=== PATIENT | male | born 1955 | race Caucasian/White ===

== ENCOUNTER → 2020-11-30 | Outpatient (CLI) | payer MEDICARE, OTHER ==
--- NOTE | 2020-11-30 14:48 | REPPI ---
INDICATION: ELEVATED PSA. COMPARISON: None. TECHNIQUE: Transrectal ultrasound of the prostate is performed. FINDINGS: Prostate measures 4.4 x 3.5 x 4.5 cm for total volume of 35.1 mL. Echotexture is heterogeneous with scattered cysts and calcifications. No focal mass is seen. Seminal vesicles are symmetrical. IMPRESSION: Ultrasound guidance was provided for Dr. Rose who performed ultrasound-guided biopsy of the prostate. <Electronically signed by Zachary Padron > 11/30/20 0671
== END ==
LOC: M SMT PRO 09:07
PROVIDERS: ATTEND Urology
DX: N42.89 Other specified disorders of prostate (principal)
CPT/HCPCS: 55700; 76872; 76942; G0416

== ENCOUNTER 2022-04-28 07:09 | Day surgery (SDC) | payer MEDICARE ==
[~2022-04-28] VITALS: Ht 172.7 cm; Wt 92.4 kg
[~2022-04-28 07:09] MED LIST: AMLO1TAB25 PO; ATOR1TAB21 PO; CHLO125TA PO; FLOM0.4C39 PO; LEXA1TAB PO; LevoFLOXacin IV 500 MG in IV 1 EA IV ONE; PROS5TAB PO
[2022-04-28] MEDS ORDERED: LR 1,000 ML IV SCH ×2 (07:25→12:20)
[2022-04-28] MEDS ORDERED: POTA1TAB14 PO (07:45)
[2022-04-28] MEDS ORDERED: LIDOCAINE 1% SDV 30ML VIAL As Ordered ONE (10:38)
[2022-04-28] MEDS ORDERED: BUPIVACAINE HCL 0.25% 30ML VIAL As Ordered ONE (10:38)
[2022-04-28] MEDS ORDERED: MUPIROCIN 2% OINT 22 GM TUBE As Ordered ONE (10:39)
[2022-04-28] MEDS ORDERED: OXYC1TAB23 PO (10:40)
[2022-04-28] MEDS ORDERED: propofoL 200 MG/20 ML VIAL As Ordered ONE (10:51)
[2022-04-28] MEDS ORDERED: fentaNYL 250 MCG/5 ML INJECTION As Ordered ONE (10:51)
[2022-04-28] MEDS ORDERED: LIDOCAINE 2% 100MG/5ML SDV (FOR ANES.) As Ordered ONE (10:51)
[2022-04-28] MEDS ORDERED: MIDAZOLAM INJ 2MG/2ML VIAL (J2250 PER 1MG) As Ordered ONE (10:52)
[2022-04-28] MEDS ORDERED: BACITRACIN OINTMENT 30GM TUBE As Ordered ONE (10:53)
[2022-04-28] MEDS ORDERED: ePHEDrine SULFATE 25 MG/5 ML(5MG/ML) SYRINGE As Ordered ONE (11:30)
[2022-04-28] MEDS ORDERED: ACETAMINOPHEN 1000MG 100ML IV BTL (OFIRMEV) (J0131 PER 10MG) As Ordered ONE (11:37)
[2022-04-28] MEDS ORDERED: ONDANSETRON 4MG/2ML VIAL As Ordered ONE (11:37)
[2022-04-28] MEDS ORDERED: dexameTHASONE 4 MG/ML 1ML VIAL (J1100 PER 1MG) As Ordered ONE (11:37)
[2022-04-28] MEDS ORDERED: ONDANSETRON 4MG/2ML VIAL IV PRN (12:20)
[2022-04-28] MEDS ORDERED: fentaNYL 100 MCG/2 ML INJECTION IV PRN (12:20)
[2022-04-28] MEDS ORDERED: oxyCODONE 5MG TAB PO PRN (12:20)
[2022-04-28] MEDS ORDERED: MORPHINE 2 MG/ML 1ML VIAL IV PRN (12:20)
[2022-04-28] MEDS ORDERED: PERCOCET 5MG/325MG TAB PO PRN (13:50)
[2022-04-28 14:20] VITALS: BP 154/84
== END 2022-04-28 14:25 | disposition home or self-care (01) ==
LOC: M SDC 07:09
PROVIDERS: ATTEND Urology
DX: N43.3 Hydrocele, unspecified (principal); I10 Essential (primary) hypertension; E78.5 Hyperlipidemia, unspecified; J44.9 Chronic obstructive pulmonary disease, unspecified; Z87.891 Personal history of nicotine dependence; Z79.899 Other long term (current) drug therapy; Z88.0 Allergy status to penicillin
CPT/HCPCS: 55040; 88302; J0131; J1100; J1956; J2250; J2405; J3010

== ENCOUNTER 2022-08-14 08:40 | Day surgery (SDC) | payer MEDICARE ==
[~2022-08-14] VITALS: Ht 172.7 cm; Wt 93.9 kg
[~2022-08-14 08:40] MED LIST changes: -LevoFLOXacin IV 500 MG in IV 1 EA IV ONE; +OXYC1TAB23 PO; +POTA1TAB14 PO
[2022-08-14] MEDS ORDERED: LIDOCAINE 2% 100MG/5ML SDV (FOR ANES.) As Ordered ONE (09:28)
[2022-08-14] MEDS ORDERED: MIDAZOLAM INJ 2MG/2ML VIAL (J2250 PER 1MG) As Ordered ONE (09:28)
[2022-08-14] MEDS ORDERED: ONDANSETRON 4MG 2ML VIAL As Ordered ONE (09:28)
[2022-08-14] MEDS ORDERED: dexameTHASONE 4 MG/ML 1ML VIAL (J1100 PER 1MG) As Ordered ONE (09:28)
[2022-08-14] MEDS ORDERED: fentaNYL 250 MCG/5 ML INJECTION As Ordered ONE (09:28)
[2022-08-14] MEDS ORDERED: propofoL 200 MG/20 ML VIAL As Ordered ONE (09:29)
[2022-08-14] MEDS ORDERED: ACETAMINOPHEN 1000MG 100ML IV BTL (OFIRMEV) (J0131 PER 10MG) As Ordered ONE (09:33)
[2022-08-14] MEDS ORDERED: LR 1,000 ML IV SCH ×2 (09:35→13:30)
[2022-08-14] MEDS ORDERED: CLINDAMYCIN 300 MG in IV 1 EA IV ONE (09:35)
[2022-08-14] MEDS ORDERED: LIDOCAINE 2% MDV 20ML VIAL As Ordered ONE (12:01)
[2022-08-14] MEDS ORDERED: BUPIVACAINE HCL 0.25% 10ML VIAL As Ordered ONE (12:01)
[2022-08-14] MEDS ORDERED: BACITRACIN OINTMENT 30GM TUBE As Ordered ONE (12:45)
[2022-08-14] MEDS ORDERED: GENTAMICIN SULF 80MG/2ML VIAL As Ordered ONE (12:46)
[2022-08-14] MEDS ORDERED: ePHEDrine SULFATE 25 MG/5 ML(5MG/ML) SYRINGE As Ordered ONE (12:54)
[2022-08-14] MEDS ORDERED: CLINDAMYCIN 600MG/50ML PREMIX BAG As Ordered ONE (12:57)
[2022-08-14] MEDS ORDERED: CLINDAMYCIN 900 MG in IV 1 EA IV ONE (13:10)
[2022-08-14] MEDS ORDERED: ONDANSETRON 4MG 2ML VIAL IV PRN (13:30)
[2022-08-14] MEDS ORDERED: HYDROMORPHONE HCL 0.5 MG/ 0.5 ML SYRINGE (J1170 PER 1) IV PRN (13:30)
[2022-08-14] MEDS ORDERED: BACT800T5 PO (13:42)
[2022-08-14] MEDS ORDERED: HYDR-3713 PO (13:42)
[2022-08-14] MEDS: oxyCODONE 5MG TAB PO PRN ×2 (14:04→14:32)
[2022-08-14] MEDS: fentaNYL 100 MCG/2 ML INJECTION IV PRN ×4 (14:05→14:38)
[2022-08-14 15:52] VITALS: BP 142/83
== END 2022-08-14 16:02 | disposition home or self-care (01) ==
LOC: M SDC 08:40
PROVIDERS: ATTEND Urology
DX: N50.1 Vascular disorders of male genital organs (principal); Z88.0 Allergy status to penicillin
CPT/HCPCS: 55040; 88302; J0131; J1100; J1580; J2250; J2405; J3010